=== PATIENT | female | born 1985 | race Caucasian/White ===

== ENCOUNTER 2017-09-07 11:29 | Emergency (ER) | payer MEDICAID ==
[2017-09-07 12:19] LABS: HCG UR QUAL NEGATIVE
--- NOTE | 2017-09-07 12:56 | XRAY Report ---
EXAM: CHEST RADIOGRAPHY EXAM DATE: 09/07/2017 12:33 PM. CLINICAL HISTORY: Cough x3 weeks. COMPARISON: 02/14/2015. TECHNIQUE: 2 views. FINDINGS: Lungs/Pleura: Mild bilateral bronchial wall thickening more prominent centrally. No consolidation or vascular congestion. No pleural effusion or pneumothorax. Relatively large lung volumes. Mediastinum: Heart and mediastinal contours are unremarkable. Bones: No significant findings. IMPRESSION: 1. Consistent with airways disease such as RAD or viral syndrome. No consolidation. [facility] Referring Provider Line: [phone] SITE ID: [id number]
--- NOTE | 2017-09-07 13:11 | ED Physician Documentation ---
PD HPI URI - Stated complaint Stated Complaint: COUGH - Chief complaint Chief Complaint: Resp - History obtained from History obtained from: Patient - History of Present Illness Timing - onset: How many weeks ago (2) Timing duration: Weeks Timing details: Gradual onset (had flu like symptoms for 2 weeks and was improving, now with productive cough for few days.), Still present Associated symptoms: Fever, Chills, Nasal congestion, Productive cough (just few days). No: Hemoptysis, Chest pain Contributing factors: No: Sick contact, Travel, Immunocompromised, COPD / asthma Similar symptoms before: Has not had sx before Recently seen: Not recently seen Review of Systems Constitutional: reports: Fever, Chills, Myalgias Nose: reports: Congestion Throat: denies: Sore throat Cardiac: reports: Chest pain / pressure (with coughing). denies: Palpitations Respiratory: reports: Dyspnea, Cough GI: denies: Abdominal Pain, Nausea, Vomiting, Diarrhea Skin: denies: Rash, Lesions Neurologic: reports: Generalized weakness. denies: Altered mental status, Headache PD PAST MEDICAL HISTORY - Past Medical History Cardiovascular: None Respiratory: None Neuro: Headache/migraine, Seizure disorder GI: GERD Musculoskeletal: Chronic back pain - Past Surgical History Past Surgical History: No - Present Medications Home Medications: Ambulatory Orders Medication Instructions Recorded Confirmed Albuterol Sulf [Ventolin Hfa 1 - 2 puffs INH Q4HR PRN #1 inhaler 09/07/17 Inhaler] Azithromycin [Zithromax] 250 mg PO DAILY #6 tablet 09/07/17 Benzonatate [Tessalon] 100 mg PO TID PRN #25 capsule 09/07/17 Dexamethasone [Decadron] 4 mg PO DAILY #5 tablet 09/07/17 Ondansetron Odt [Zofran] 4 mg TL Q6H PRN #15 tablet 09/07/17 - Allergies Allergies/Adverse Reactions: Allergies Allergy/AdvReac Type Severity Reaction Status Date / Time acetaminophen [From Tylenol] AdvReac Intermediate Emesis Verified 12/15/15 18:09 - Social History Does the pt smoke?: Yes Smoking Status: Current every day smoker Does the pt drink ETOH?: Yes Does the pt have substance abuse?: Yes Substance Use and Type: Marijuana - Immunizations Immunizations are current?: Yes - POLST Patient has POLST: No Results - Vitals Vitals: Oxygen O2 Source Room air - Labs Labs: Laboratory Tests 09/07/17 12:03 Ur Specific [place] 1.010 Urine HCG, Qual NEGATIVE - Rads (name of study) chest xray Radiology: Prelim report reviewed (bronchail wall thickening; no infiltrates) PD MEDICAL DECISION MAKING - ED course Complexity details: considered differential (sounds like secondary bronchitis after flu, so possibly bacterial. ), d/w patient Departure - Departure Disposition: 01 Home, Self Care Clinical Impression: Bronchitis, acute Qualifiers: Bronchitis organism: unspecified organism Qualified Code(s): J20.9 - Acute bronchitis, unspecified Condition: Stable Record reviewed to determine appropriate education?: Yes Instructions: ED Upper Resp Infec Abx Tx Follow-Up: Ingrid Schwartz ARNP [Primary Care Provider] - Prescriptions: Albuterol Sulf [Ventolin Hfa Inhaler] 1 - 2 puffs INH Q4HR PRN #1 inhaler PRN Reason: Shortness Of Air/Wheezing Azithromycin [Zithromax] 250 mg PO DAILY #6 tablet Benzonatate [Tessalon] 100 mg PO TID PRN #25 capsule PRN Reason: Cough Dexamethasone [Decadron] 4 mg PO DAILY #5 tablet Ondansetron Odt [Zofran] 4 mg TL Q6H PRN #15 tablet PRN Reason: Nausea / Vomiting Comments: Drink lots of fluids. Ondansetron if needed for nausea. For the cough/ bronchitis, use albuterol inhaler 2 puffs 4 times a day for the next 7-10 days and Decadron steroid daily for 5 days. This may potentially be still just inflammatory from the recent flu though could be a secondary bacterial infection and so we will treated with Zithromax antibiotic as well. Use Tessalon if needed for cough. Recheck if not improving over the next several days Discharge Date/Time: 09/07/17 13:53
[2017-09-07 13:55] VITALS: BP 104/63
== END 2017-09-07 13:53 | disposition home or self-care (01) ==
LOC: ED 11:29
DX: J40 Bronchitis, not specified as acute or chronic (principal); F17.200 Nicotine dependence, unspecified, uncomplicated
CPT/HCPCS: 71046; 81025; 99283

== ENCOUNTER 2018-01-14 19:47 | Emergency (ER) | payer MEDICAID ==
[2018-01-14 20:01] VITALS: BP 120/78
[2018-01-14] MEDS ORDERED: LIDOCAINE OINTMENT 5% 35.44 GM TUBE TOP STA (20:11)
[2018-01-14] MEDS ORDERED: oxyCODONE 5 MG TABLET PO STA (20:11)
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
== END 2018-01-14 20:24 | disposition home or self-care (01) ==
LOC: ED 19:47
DX: T25.121A Burn of first degree of right foot, initial encounter (principal); X08.8XXA Exposure to other specified smoke, fire and flames, initial encounter; Y92.009 Unspecified place in unspecified non-institutional (private) residence as the place of occurrence of the external cause
CPT/HCPCS: 99281; 99283; A9270

== ENCOUNTER 2018-05-14 19:56 | Outpatient (CLI) | payer MEDICAID ==
[2018-05-14 20:36] VITALS: BP 110/55
[2018-05-14 20:59] LABS: BILIRUBIN,URINE NEGATIVE (NEGATIVE); GLUCOSE, URINE (UA) NEGATIVE (NEGATIVE); KETONES,URINE (UA) NEGATIVE (NEGATIVE); LEUKOCYTE ESTERASE, URINE NEGATIVE (NEGATIVE); NITRITE,URINE NEGATIVE (NEGATIVE); OCCULT BLOOD,URINE TRACE-INTA (NEGATIVE); PROTEIN,URINE NEGATIVE (NEGATIVE); UROBILINOGEN,URINE 0.2 (NORMAL) E.U./dL (NORMAL)
[2018-05-14 21:01] LABS: CLARITY,URINE CLEAR (CLEAR)
--- NOTE | 2018-05-15 00:12 | PREOP HISTORY & PHYSICAL ---
DATE OF SERVICE: 05/14/2018 Physician: Sharan Pastrana MD PATIENT IDENTIFICATION: The patient is a 33-year-old, G6, P2, 1-2-2 who is 22 weeks' gestational age with a due date of 09/12/2018. She has been seen by clinic at [facility]. CHIEF COMPLAINT: Pelvic pain. HISTORY OF PRESENT ILLNESS: Patient states that Thursday of this last week she developed severe lower pubic pain. She rates the pain as 6/10. It is constant. It is worse with walking, climbing stairs; better with rest. She has tried local heat, which does give her some help. She denies any trauma to this area. She states when she climbs into her boyfriend's high-rise pickup that this makes it worse. She states squatting with her feet apart or whilst turning also put stress on this area giving her pain. She denies any cramping pain or burning on urination. PAST MEDICAL HISTORY 1. Migraines. 2. Hepatitis B. 3. Tylenol toxicity. PAST SURGICAL HISTORY: None. ALLERGIES: NONE KNOWN. CURRENT MEDICATIONS: None. She denies consuming any vitamins. HABITS: Patient smokes 10-12 cigarettes per day. Smokes anywhere from 1-2 grams of THC on a daily basis. Denies use of alcohol. SOCIAL HISTORY: Patient works as a medical radiation therapist. She lives with her significant other; states she is in a stable, safe relationship. FAMILY HISTORY: Positive for mother with multiple miscarriages. She denies any history of breast, ovarian, or cervical cancer. PHYSICAL EXAMINATION GENERAL: Patient is a short female whose height is 4 feet 11 inches. Her most recent weight was 101 pounds. HEENT: Pupils equal, round. Extraocular muscles are intact. Mouth is clear. Thyroid was not palpably enlarged. HEART: Regular rate and rhythm without murmurs. LUNGS: Lung guzman are clear without rales or wheezes. BACK: No spinal or CVA tenderness. ABDOMEN: Uterus is palpated roughly 3-4 fingerbreadths above the umbilicus. The uterus itself is nontender. She has marked tenderness in the pubic symphysis as well as what appears to be the pyramidalis muscle. LABORATORY STUDIES: She has had a urinalysis, which was negative for leukocytes or nitrites. IMPRESSION 1. A 33-year-old, G6, P2-1-2-2 at 22 weeks with an EDC of 09/12/2018. 2. Pubic symphysitis. PLAN: I have discussed the issues of limiting her stretching and activity, making sure she does not turn. I also recommend she utilize a [place] maternity belt to see if this does not help. Recommended she stay off it, but I am aware that she earns her living as a medical radiation therapist and must be up and about. I have told her that she needs to contact her clinic, as well as try and arrange her working hours to 4-hour days. TD: 05/14/2018 22:06 [place]
== END 2018-05-14 22:07 | disposition home or self-care (01) ==
LOC: WFO 19:56 → FBP 19:58 → WFO 22:07
PROVIDERS: ATTEND Obstetrics & Gynecology
DX: O26.892 Other specified pregnancy related conditions, second trimester (principal); R10.2 Pelvic and perineal pain; Z3A.22 22 weeks gestation of pregnancy; O99.332 Smoking (tobacco) complicating pregnancy, second trimester; F17.210 Nicotine dependence, cigarettes, uncomplicated; O99.322 Drug use complicating pregnancy, second trimester; F12.90 Cannabis use, unspecified, uncomplicated
CPT/HCPCS: 81001; 81003; 87086; 99212

== ENCOUNTER 2018-07-11 18:56 | Outpatient (CLI) | payer MEDICAID ==
[2018-07-11 19:16] VITALS: BP 110/53
[2018-07-11 20:17] LABS: MUDS CUTOFF CONCENTRATIONS CUTOFF CONC BELOW:
[2018-07-11 20:20] LABS: BILIRUBIN,URINE NEGATIVE (NEGATIVE); GLUCOSE, URINE (UA) NEGATIVE (NEGATIVE); KETONES,URINE (UA) NEGATIVE (NEGATIVE); LEUKOCYTE ESTERASE, URINE NEGATIVE (NEGATIVE); NITRITE,URINE NEGATIVE (NEGATIVE); OCCULT BLOOD,URINE TRACE-INTA (NEGATIVE); PH,URINE 6.5 PH (5.0-7.5); PROTEIN,URINE NEGATIVE (NEGATIVE); UROBILINOGEN,URINE 0.2 (NORMAL) E.U./dL (NORMAL)
[2018-07-11 20:32] LABS: BACTERIA,URINE None Seen /HPF (None Seen); CLARITY,URINE CLEAR (CLEAR); COCAINE SCREEN URINE NEGATIVE (NEGATIVE); METHAMPHETAMINES SCREEN, URINE NEGATIVE (NEGATIVE); RBC,URINE 0-5 /HPF (0-5); SQUAMOUS EPITHELIAL CELL,UR NONE SEEN (<= Few)
[2018-07-11 20:33] LABS: RUPTURE OF MEMBRANES PLUS NEGATIVE (NEGATIVE)
[2018-07-11 20:33] LABS: AMPHETAMINE SCREEN,URINE NEGATIVE (NEGATIVE); BENZODIAZEPINES SCREEN, URINE NEGATIVE (NEGATIVE); METHADONE SCREEN, URINE NEGATIVE (NEGATIVE); OPIATE SCREEN, URINE POSITIVE (NEGATIVE); OXYCODONE SCREEN, URINE POSITIVE (NEGATIVE); PROPOXYPHENE SCREEN, URINE NEGATIVE (NEGATIVE); TRICYCLIC ANTIDEPRESSANT,URINE NEGATIVE (NEGATIVE)
[2018-07-11 21:18] LABS: BASOPHILS % (AUTO) 0.3 %; EOSINOPHILS # (AUTO) 0.2 10^3/uL (0.0-0.7); EOSINOPHILS % (AUTO) 2.2 %; HGB - HEMOGLOBIN 8.2 g/dL (12.0-16.0); LYMPHOCYTES # (AUTO) 1.9 10^3/uL (1.5-3.5); LYMPHOCYTES % (AUTO) 17.4 %; MEAN CORPUSCULAR HEMOGLOBIN 26.8 pg (27.0-31.0); MEAN CORPUSCULAR HGB CONC 33.4 g/dL (32.0-36.0); MEAN CORPUSCULAR VOLUME 80.2 fL (81.0-99.0); MEAN PLATELET VOLUME 7.2 fL (7.9-10.8); MONOCYTES # (AUTO) 0.7 10^3/uL (0.0-1.0); MONOCYTES % (AUTO) 6.1 %; NEUTROPHILS # (AUTO) 8.2 10^3/uL (1.5-6.6); PLT - PLATELET COUNT 227 10^3/uL (130-450); RED BLOOD COUNT 3.06 10^6/uL (4.20-5.40); RED CELL DISTRIBUTION WIDTH 14.6 % (12.0-15.0); WHITE BLOOD COUNT 11.1 x10^3/uL (4.8-10.8)
[2018-07-11 21:43] LABS: HB2 TOTAL 8.4 g/dL; HEMOGLOBIN A1C 0.27 g/dL; HEMOGLOBIN A1C % 5.1 % (4.6-6.2)
[2018-07-13 12:53] LABS: HEPATITIS A IGM NON-REACTIVE (NON-REACTIVE); HEPATITIS B CORE ANTIBODY IGM NON-REACTIVE (NON-REACTIVE); HEPATITIS B SURFACE ANTIGEN NON-REACTIVE (NON-REACTIVE); HEPATITIS C ANTIBODY NON-REACTIVE (NON-REACTIVE)
[2018-07-13 14:21] LABS: HIV AG/AB 4TH GEN NON-REACTIVE (NON-REACTIVE)
== END 2018-07-11 22:40 | disposition home or self-care (01) ==
LOC: WFO 18:56 → FBP 18:57 → WFO 22:40
PROVIDERS: ATTEND Obstetrics & Gynecology
DX: O99.89 Other specified diseases and conditions complicating pregnancy, childbirth and the puerperium (principal); N89.8 Other specified noninflammatory disorders of vagina; Z3A.31 31 weeks gestation of pregnancy
CPT/HCPCS: 36415; 80074; 80306; 81001; 82731; 82947; 83036; 84112; 85025; 86225; 86762; 86780; 86900; 86901; 87081; 87086; 87389; 87480; 87510; 87660; 99213

== ENCOUNTER 2018-08-05 15:28 | Outpatient (CLI) | payer MEDICAID ==
[2018-08-05 19:01] LABS: CREATININE 0.4 mg/dL (0.4-1.0); URIC ACID 3.4 mg/dL (2.6-7.2)
[2018-08-05 19:16] LABS: CREATININE,URINE 57.9 mg/dL; MICROALBUM/CREATININE RATIO,UR 6.9 ug/mg (<30.0); MICROALBUMIN,URINE 0.4 mg/dL (0-300.0); PROTEIN/CREATININE RATIO,URINE 0.1 (<=0.2)
== END 2018-08-05 15:29 | disposition home or self-care (01) ==
LOC: LAB.F 15:28
PROVIDERS: ATTEND Registered Nurse Women's Health Care, Ambulatory
DX: Z34.90 Encounter for supervision of normal pregnancy, unspecified, unspecified trimester (principal); Z87.59 Personal history of other complications of pregnancy, childbirth and the puerperium
CPT/HCPCS: 36415; 82043; 82565; 82570; 84156; 84450; 84460; 84520; 84550; 87086; 87389

== ENCOUNTER 2019-01-08 14:34 | Emergency (ER) | payer MEDICAID ==
[2019-01-08 14:48] VITALS: BP 110/60
--- NOTE | 2019-01-08 16:49 | ED Physician Documentation ---
PD HPI HEENT - Stated complaint Stated Complaint: JAW PX - Chief complaint Chief Complaint: General - History obtained from History obtained from: Patient - History of Present Illness Timing - onset: How many days ago (4) Timing - duration: Days (4) Timing - details: Abrupt onset (Had pain in the right jaw after extraction of 2 incisor teeth. She says she has had some TMJ problems in the past. She had been prescribed for pain pills after the procedure. Should been using some anti-inflammatories. She complains of pain still at the jaw TMJ area and not really at the extraction sites. It hurts for mouth opening and clenching. She denies any malocclusion.) Location: Other (right jaw/TMJ area) Worsens: Other (chewing and jaw movement) Associated symptoms: No: Fever, Congestion, Facial swelling (not feeling of swelling nor drainage at extraction sites) Review of Systems Constitutional: denies: Fever, Chills, Myalgias Throat: reports: Dental pain / toothache (at extraction sites, but most of her pain is at jaw and TMJ. She is concerned that "my jaw got broken when they took my teeth out."). denies: Sore throat Cardiac: denies: Chest pain / pressure Respiratory: denies: Dyspnea, Cough GI: denies: Nausea, Vomiting, Diarrhea Skin: denies: Rash, Lesions PD PAST MEDICAL HISTORY - Past Medical History Cardiovascular: None Respiratory: None GI: GERD Musculoskeletal: Chronic back pain - Past Surgical History Past Surgical History: No - Present Medications Home Medications: Ambulatory Orders Medication Instructions Recorded Confirmed oxyCODONE [Roxicodone] 5 mg PO Q4-6H PRN #10 tablet 01/14/18 Amoxicillin 250 mg PO 01/08/19 Ibuprofen [Ibu] 800 mg PO TID PRN #30 tablet 01/08/19 oxyCODONE [Roxicodone] 5 mg PO Q6H PRN #20 tablet 01/08/19 - Allergies Allergies/Adverse Reactions: Allergies Allergy/AdvReac Type Severity Reaction Status Date / Time tramadol Allergy Unknown Verified 01/08/19 14:49 acetaminophen [From Tylenol] AdvReac Intermediate Emesis Verified 01/14/18 20:01 - Social History Does the pt smoke?: Yes Smoking Status: Current every day smoker Does the pt drink ETOH?: Yes Does the pt have substance abuse?: Yes - Immunizations Immunizations are current?: Yes - POLST Patient has POLST: No PD ED PE NORMAL - Vitals Vital signs reviewed: Yes - General General: Alert and oriented X 3, No acute distress - HEENT HEENT: Pharynx benign, Other (right canine teeth upper and lower are post extraction with healing gums, no signs of infection. Jaw without deformity. TMJ area is tender without sublux nor clicking. ) - Neck Neck: Supple, no meningeal sign, No adenopathy Results - Vitals Vitals: Vital Signs - 24 hr 01/08/19 14:45 Temperature 36.4 C L Heart Rate 93 Respiratory 16 Rate Blood Pressure 110/60 O2 Saturation 100 Oxygen O2 Source Room air PD MEDICAL DECISION MAKING - ED course Complexity details: considered differential (presume her jaw muscles and TMJ area were bothered during the extractions. Would be very unlikely to have jaw fracture as she is concerned and she clinically does not have that. ), d/w patient Departure - Departure Disposition: 01 Home, Self Care Clinical Impression: Sprain and strain of temporomandibular joint, S/P tooth extraction, Jaw pain Condition: Stable Record reviewed to determine appropriate education?: Yes Instructions: ED TMJ Syndrome Follow-Up: Ingrid Schwartz ARNP [Primary Care Provider] - Prescriptions: Ibuprofen [Ibu] 800 mg PO TID PRN #30 tablet PRN Reason: Pain oxyCODONE [Roxicodone] 5 mg PO Q6H PRN #20 tablet PRN Reason: Pain Comments: Ice or coolness to the gums in the job may help a little bit. Use ibuprofen 2-3 times a day with food. Add oxycodone as needed for pain. Follow-up with the dental Thursday as planned for extraction of the other teeth. They can follow- up on the pain you are having from this 1 at the same time. Stay well-hydrated. Continue on your antibiotics. At this point it does not appear like any infection at the extraction sites. I presume it some inflammation in the TMJ joint and some stretching of the muscles of the jaw as well. Discharge Date/Time: 01/08/19 17:35
[2019-01-08] MEDS ORDERED: KETOROLAC 30 MG/ML VIAL IM STA (17:05)
[2019-01-08] MEDS ORDERED: oxyCODONE 5 MG TABLET PO STA (17:06)
== END 2019-01-08 17:35 | disposition home or self-care (01) ==
LOC: ED 14:34
DX: S03.40XA Sprain of jaw, unspecified side, initial encounter (principal); X58.XXXA Exposure to other specified factors, initial encounter; F17.200 Nicotine dependence, unspecified, uncomplicated
CPT/HCPCS: 96372; 99283; A9270

== ENCOUNTER 2019-12-12 15:13 | Emergency (ER) | payer MEDICAID ==
--- NOTE | 2019-12-12 15:41 | ED Physician Documentation ---
PD HPI UPPER EXT INJURY - Stated complaint Stated Complaint: L HAND PX - Chief complaint Chief Complaint: Trauma Ext - History obtained from History obtained from: Patient - History of Present Illness Location: Left, Hand Type of injury: Fall (she was supposed to have Ortho appt today, but was postponed by clinic until Wed (2 days from now). She says splint is smelly and she is still having pain. Also tripped and fell again last evening and hit splinted hand, so concerned she dislodged the fracture. Here for eval at direction of clinic nurse.) Timing - onset: Other (initial injury 5 days ago and then injured again last evening.) Timing - details: Abrupt onset, Still present Worsened by: Moving, Palpating Associated symptoms: Swelling (swelling of the hand decreased since initial injury. has developed purple and green bruising). No: Weakness, Numbness Recently seen: Emergency Dept (5 days ago for initial 5th MC fracture with splinting.) Review of Systems Throat: denies: Dental pain / toothache (she states the dental infection she had last week is gone and feeling better. No more facial swelling/pain. Trying to get dental appt.), Sore throat Skin: denies: Abrasion (s), Laceration (s) Musculoskeletal: reports: Extremity pain (states hand hurting enough to prohibit working the past 5 days.) Neurologic: denies: Focal weakness, Numbness PD PAST MEDICAL HISTORY - Past Medical History Cardiovascular: None Respiratory: None GI: GERD Musculoskeletal: Chronic back pain - Past Surgical History Past Surgical History: No - Present Medications Home Medications: Ambulatory Orders Medication Instructions Recorded Confirmed oxyCODONE [Roxicodone] 5 mg PO Q4-6H PRN #10 tablet 01/14/18 Amoxicillin 250 mg PO 01/08/19 Ibuprofen [Ibu] 800 mg PO TID PRN #30 tablet 01/08/19 oxyCODONE [Roxicodone] 5 mg PO Q6H PRN #20 tablet 01/08/19 Clindamycin HCl [Clindamycin 300MG 300 mg PO TID #20 capsule 12/07/19 CAP] Naproxen 375 mg PO BID #20 tablet 12/07/19 oxyCODONE [Roxicodone] 5 mg PO Q4-6H PRN #15 tablet 12/07/19 Oxycodone HCl 5 - 10 mg PO TID PRN #18 tablet 12/12/19 - Allergies Allergies/Adverse Reactions: Allergies Allergy/AdvReac Type Severity Reaction Status Date / Time tramadol Allergy Unknown Verified 12/12/19 15:18 acetaminophen [From Tylenol] AdvReac Intermediate Emesis Verified 12/12/19 15:18 - Social History Does the pt smoke?: Yes Smoking Status: Current every day smoker Does the pt drink ETOH?: Yes Does the pt have substance abuse?: Yes - Immunizations Immunizations are current?: Yes - POLST Patient has POLST: No PD ED PE NORMAL - Vitals Vital signs reviewed: Yes - General General: Alert and oriented X 3, No acute distress, Well developed/nourished - HEENT HEENT: Other (no facial swelling nor tenderness. ) - Neck Neck: Supple, no meningeal sign, No adenopathy - Derm Derm: Normal color, Warm and dry - Extremities Extremities: Other (left hand with tenderness over 5th MC area, with some purple bruising to hypothenar area and green/yellow bruising color to dorsal aspect and at MCP area of 4th/5th fingers. ) - Neuro Neuro: Alert and oriented X 3, No motor deficit, No sensory deficit, Normal speech Results - Vitals Vitals: Vital Signs - 24 hr 12/12/19 12/12/19 15:18 16:49 Temperature 36.5 C Heart Rate 105 H 83 Respiratory 14 20 Rate Blood Pressure 125/70 119/68 O2 Saturation 96 98 Oxygen O2 Source Room air - Rads (name of study) left ahnd Radiology: Prelim report reviewed (fracture position same as prior film. ), See rad report Procedures - Splint (location) left hand ulnar gutter Splint applied by: Tech Type of splint: Ulnar gutter Other: Patient tolerated well, No complications, Neurovascular intact PD MEDICAL DECISION MAKING - ED course Complexity details: considered differential (she was supposed to have Ortho appt today, but was postponed by clinic until Wed (2 days from now). She says splint is smelly and she is still having pain. Also tripped and fell and hit hand, so concerned she dislodged the fracture. Here for eval at direction of clinic nurse. ), d/w patient Departure - Departure Disposition: 01 Home, Self Care Clinical Impression: Boxers fracture Qualifiers: Encounter type: subsequent encounter Fracture type: closed Fracture healing: with routine healing Qualified Code(s): S62.339D - Displaced fracture of neck of unspecified metacarpal bone, subsequent encounter for fracture with routine healing Condition: Stable Record reviewed to determine appropriate education?: Yes Prescriptions: Oxycodone HCl 5 - 10 mg PO TID PRN #18 tablet PRN Reason: Pain Comments: Keep the splint on. Follow-up with orthopedics on Thursday as planned. Elevate and rest the hand often. Use the pain medicine as needed as you have been doing. Discharge Date/Time: 12/12/19 16:52
[2019-12-12] MEDS ORDERED: oxyCODONE 5 MG TABLET PO STA (16:01)
--- NOTE | 2019-12-12 16:46 | XRAY Report ---
Reason: L 5th MC fracture Procedure Date: 12/12/2019 Accession Number: [id number] / [id number] Procedure: XR - Hand 3 View LT CPT Code: Final Report FULL RESULT: PROCEDURE: Hand 3 View LT INDICATIONS: L 5th MC fracture TECHNIQUE: 3 views of the hand(s) acquired. COMPARISON: 12/07/2019 FINDINGS: Bones: Oblique fracture through proximal shaft of fifth metacarpal bone is seen with minimal plantar and medial displacement at fracture site. No suspicious bony lesions. Soft tissues: No suspicious soft tissue calcifications. IMPRESSION: Minimally displaced fifth proximal metacarpal shaft fracture as above. Reviewed by: Franklin Perez MD on 12/12/2019 4:45 PM PDT Approved by: Franklin Perez MD on 12/12/2019 4:45 PM PDT Station ID: [id number]
[2019-12-12 16:49] VITALS: BP 119/68
== END 2019-12-12 16:52 | disposition home or self-care (01) ==
LOC: ED 15:13
DX: S62.327A Displaced fracture of shaft of fifth metacarpal bone, left hand, initial encounter for closed fracture (principal); W01.0XXA Fall on same level from slipping, tripping and stumbling without subsequent striking against object, initial encounter
CPT/HCPCS: 29125; 73130; 99283; 99284; A9270

== ENCOUNTER 2019-12-21 07:00 | Outpatient (CLI) | payer MEDICAID | END 2019-12-21 23:59 | disposition home or self-care (01) | LOC: LAB.R 07:00 | PROVIDERS: ATTEND Family Medicine | DX: R30.0 Dysuria (principal) | CPT/HCPCS: 87086 ==

== ENCOUNTER 2020-01-16 11:08 | Outpatient (CLI) | payer MEDICAID ==
--- NOTE | 2020-01-16 14:54 | XRAY Report ---
Reason: LEFT HAND FRACTURE Procedure Date: 01/16/2020 Accession Number: [id number] / [id number] Procedure: WCP - Hand 3 View LT CPT Code: Final Report FULL RESULT: PROCEDURE: Hand 3 View LT INDICATIONS: LEFT HAND FRACTURE TECHNIQUE: 3 views of the left hand acquired. COMPARISON: X-ray 12/12/2019, 12/07/2019 FINDINGS: Bones: A mildly displaced spiral fracture of the fifth metacarpal shaft demonstrates no interval change in alignment. There is increased bridging callus demonstrated. Remodeling is also demonstrated along the fracture margins which remain visible. No new fractures. Soft tissues: No suspicious soft tissue calcifications. IMPRESSION: 1. Healing fifth metacarpal shaft fracture without change in alignment. Reviewed by: Lamine Bal MD on 01/16/2020 2:52 PM PDT Approved by: Lamine Bal MD on 01/16/2020 2:52 PM PDT Station ID: [id number]
== END 2020-01-16 23:59 | disposition home or self-care (01) ==
LOC: DI.WCP 11:08
PROVIDERS: ATTEND Physician Assistant
DX: S62.327D Displaced fracture of shaft of fifth metacarpal bone, left hand, subsequent encounter for fracture with routine healing (principal)

== ENCOUNTER 2020-03-23 07:30 | Outpatient (CLI) | payer MEDICAID ==
--- NOTE | 2020-03-23 13:35 | XRAY Report ---
PROCEDURE: Hand 3 View LT INDICATIONS: LEFT 5TH METACARPAL FRACTURE TECHNIQUE: 3 views of the hand(s) acquired. COMPARISON: Similar prior study 12/12/2019. FINDINGS: Bones: No previously unidentified fractures or dislocations. No suspicious bony lesions. Continued healing, no change in virtual anatomic alignment Soft tissues: No suspicious soft tissue calcifications. IMPRESSION: Healed normally aligned fracture at the diaphysis of the fifth metacarpal bone. Reviewed by: Ziyad Lopez MD on 03/23/2020 1:33 PM PDT Approved by: Ziyad Lopez MD on 03/23/2020 1:33 PM PDT Station ID: [id number]
== END 2020-03-23 07:31 | disposition home or self-care (01) ==
LOC: DI.WCP 07:30
PROVIDERS: ATTEND Physician Assistant
DX: S62.357A Nondisplaced fracture of shaft of fifth metacarpal bone, left hand, initial encounter for closed fracture (principal)

== ENCOUNTER 2020-05-27 18:55 | Outpatient (CLI) | payer MEDICAID | END 2020-05-27 18:56 | disposition critical access hospital (66) | LOC: EMS 18:55 | PROVIDERS: ATTEND Surgery | DX: R11.2 Nausea with vomiting, unspecified (principal); R06.02 Shortness of breath; R07.9 Chest pain, unspecified | CPT/HCPCS: A0425; A0427; A0999 ==

== ENCOUNTER 2020-05-27 19:32 | Emergency (ER) | payer MEDICAID ==
[2020-05-27] MEDS: MAG HYDROX/AL HYDROX/SIMETH 30 ML UDC PO STA (19:54)
[2020-05-27] MEDS: SUCRALFATE 1 GM/10 ML UDC PO STA (19:54)
[2020-05-27] MEDS: SODIUM CHLORIDE 0.9% 1,000 ML IV STA (19:54)
[2020-05-27 20:11] LABS: BASOPHILS % (AUTO) 0.5 %; EOSINOPHILS % (AUTO) 0.2 %; HGB - HEMOGLOBIN 14.4 g/dL (12.0-16.0); LYMPHOCYTES # (AUTO) 1.7 10^3/uL (1.5-3.5); LYMPHOCYTES % (AUTO) 25.5 %; MEAN CORPUSCULAR HEMOGLOBIN 29.4 pg (27.0-31.0); MEAN CORPUSCULAR HGB CONC 34.2 g/dL (32.0-36.0); MEAN CORPUSCULAR VOLUME 85.9 fL (81.0-99.0); MONOCYTES # (AUTO) 0.4 10^3/uL (0.0-1.0); NEUTROPHILS # (AUTO) 4.4 10^3/uL (1.5-6.6); NEUTROPHILS % (AUTO) 67.6 %; PLT - PLATELET COUNT 286 10^3/uL (130-450); WHITE BLOOD COUNT 6.5 x10^3/uL (4.8-10.8)
[2020-05-27 20:22] LABS: ALBUMIN 3.8 g/dL (3.2-5.5); ALBUMIN/GLOBULIN RATIO 1.2 (1.0-2.2); BILIRUBIN,TOTAL 0.8 mg/dL (0.2-1.0); CALCIUM 9.1 mg/dL (8.5-10.3); CREATININE 0.6 mg/dL (0.4-1.0); TOTAL PROTEIN 7.1 g/dL (6.7-8.2)
[2020-05-27] MEDS: KETOROLAC 30 MG/ML VIAL IVP STA (20:23)
[2020-05-27] MEDS: PROMETHAZINE INJ 25 MG in SODIUM CHLORIDE 0.9% 50 ML IV STA (20:25)
[2020-05-27] MEDS ORDERED: PROMETHAZINE 25 MG/1 ML VIAL ONE (20:26)
--- NOTE | 2020-05-27 20:46 | ED Physician Documentation ---
History of Present Illness - Stated complaint Stated Complaint: CP/ N/V - Chief complaint Chief Complaint: Cardiac - History obtained from History obtained from: Patient - History of Present Illness Timing: Today Pain level max: 7 Pain level now: 6 - Additonal information Additional information: 35-year-old female presents to the emergency department with nausea and vomiting today. Complains of abdominal cramping as well. Nothing makes it better or worse. She does use marijuana daily. She had been on Suboxone in the past, but states she has not taken it in over a month. No fevers. No chills. No recent travel. Denies any possibility of . Review of Systems Constitutional: denies: Fever, Chills Ears: denies: Ear pain Nose: denies: Rhinorrhea / runny nose Throat: denies: Sore throat Cardiac: denies: Chest pain / pressure Respiratory: denies: Cough GI: reports: Abdominal Pain, Nausea, Vomiting. denies: Diarrhea : denies: Dysuria, Frequency, Hesitancy, Now EGA Skin: denies: Rash Musculoskeletal: denies: Neck pain, Back pain Neurologic: denies: Headache PD PAST MEDICAL HISTORY - Past Medical History Cardiovascular: None Respiratory: None GI: GERD Musculoskeletal: Chronic back pain - Past Surgical History Past Surgical History: No - Present Medications Home Medications: Ambulatory Orders Medication Instructions Recorded Confirmed Ibuprofen [Ibu] 800 mg PO TID PRN #30 tablet 01/08/19 - Allergies Allergies/Adverse Reactions: Allergies Allergy/AdvReac Type Severity Reaction Status Date / Time tramadol Allergy Unknown Verified 05/27/20 19:47 acetaminophen [From Tylenol] AdvReac Intermediate Emesis Verified 05/27/20 19:47 - Social History Does the pt smoke?: Yes Smoking Status: Current every day smoker Does the pt drink ETOH?: Yes Does the pt have substance abuse?: Yes - Immunizations Immunizations are current?: Yes - POLST Patient has POLST: No PD ED PE NORMAL - Vitals Vital signs reviewed: Yes - General General: Alert and oriented X 3, No acute distress - HEENT HEENT: Moist mucous membranes - Neck Neck: Supple, no meningeal sign - Cardiac Cardiac: RRR - Respiratory Respiratory: No respiratory distress, Clear bilaterally - Abdomen Abdomen: Soft, Non distended, Other (Mild diffuse tenderness to palpation without peritoneal signs) - Derm Derm: Warm and dry - Extremities Extremities: No edema - Neuro Neuro: Alert and oriented X 3 - Psych Psych: Normal mood, Normal affect Results - Vitals Vitals: Vital Signs - 24 hr 05/27/20 05/27/20 19:43 21:30 Temperature 36.5 C Heart Rate 98 72 Respiratory 24 14 Rate Blood Pressure 112/89 H 136/88 H O2 Saturation 100 94 Oxygen O2 Source Room air - EKG (time done) 1943 Rate: Rate (enter#) (75) Rhythm: NSR [place]: Normal Intervals: Normal [place] QRS: Normal Ischemia: Normal ST segments - Labs Labs: Laboratory Tests 05/27/20 05/27/20 20:00 20:00 WBC 6.5 RBC 4.90 Hgb 14.4 Hct 42.1 MCV 85.9 MCH 29.4 MCHC 34.2 RDW 12.0 Plt Count 286 MPV 10.0 Neut # (Auto) 4.4 Lymph # (Auto) 1.7 [place] # (Auto) 0.4 Eos # (Auto) 0.0 Baso # (Auto) 0.0 Absolute Nucleated RBC 0.00 Nucleated RBC % 0.0 Sodium 140 Potassium 3.5 Chloride 103 Carbon Dioxide 26 Anion Gap 11.0 BUN 16 Creatinine 0.6 Estimated GFR (MDRD) 115 Glucose 103 H Calcium 9.1 Total Bilirubin 0.8 AST 14 ALT 18 Alkaline Phosphatase 53 Total Protein 7.1 Albumin 3.8 Globulin 3.3 Albumin/Globulin Ratio 1.2 Lipase 18 L - Rads (name of study) cxr Radiology: Prelim report reviewed, EMP read contemporaneously, See rad report (no acute disease) PD MEDICAL DECISION MAKING - ED course Complexity details: reviewed results, re-evaluated patient, considered differential, d/w patient ED course: 35-year-old female with nausea and vomiting since 8 AM this morning. Describes a burning in her chest as well. Did not respond well to Zofran and Phenergan. She does use marijuana daily, possible cannabinoid induced hyperemesis? We will trial her on haloperidol and see how she responds. Patient will be signed out to the oncoming emergency department physician awaiting urinalysis and reassessment after the haloperidol. If she improves with the haloperidol, likely that she will be able to be discharged home. This document was made in part using voice recognition software. While efforts are made to proofread this document, sound alike and grammatical errors may occur. Departure - Departure Clinical Impression: Vomiting Qualifiers: Vomiting type: unspecified Vomiting Intractability: non-intractable Nausea presence: with nausea Qualified Code(s): R11.2 - Nausea with vomiting, unspecified Condition: Stable
[2020-05-27] MEDS: FAMOTIDINE 20 MG TABLET PO STA (21:20)
[2020-05-27] MEDS: LIDOCAINE VISCOUS 2% 15 ML UDC MM STA (21:20)
[2020-05-27] MEDS: MORPHINE 2 MG/ML CARPUJECT IVP STA (21:36)
[2020-05-27] MEDS: HALOPERIDOL 5 MG/ML VIAL IVP STA (21:46)
--- NOTE | 2020-05-27 21:57 | XRAY Report ---
PROCEDURE: Chest 1 View X-Ray INDICATIONS: chest pain TECHNIQUE: One view of the chest was acquired. COMPARISON: 02/14/2015 FINDINGS: Surgical changes and devices: None. Lungs and pleura: No pleural effusions or pneumothorax. Lungs are clear. Mediastinum: Mediastinal contours appear normal. Heart size is normal. Bones and chest wall: No suspicious bony lesions. Overlying soft tissues appear unremarkable. IMPRESSION: 1. No acute cardiopulmonary abnormality. 2. 1.4 cm nodule in the right mid lung is unchanged compared to prior x-ray on 02/14/2015, probably a nipple shadow. Reviewed by: Lior Mckenna on 05/27/2020 9:55 PM [facility] Approved by: Lior Mckenna on 05/27/2020 9:55 PM [facility] Station ID: [id number]
[2020-05-27 23:27] VITALS: BP 127/97
== END 2020-05-27 23:46 | disposition home or self-care (01) ==
LOC: EDUNIT# → ED 19:32
DX: R11.2 Nausea with vomiting, unspecified (principal); F17.200 Nicotine dependence, unspecified, uncomplicated
CPT/HCPCS: 36415; 71045; 80053; 83690; 84484; 85025; 93005; 96365; 96375; 99284; A9270; J7040